=== PATIENT | female | born 1960 | race Caucasian/White ===

== ENCOUNTER 2020-04-12 15:29 | Inpatient (IN) | payer SELFPAY ==
[2020-04-12 15:45] VITALS: BMI 30.7
[2020-04-12] MEDS ORDERED: SODIUM CHLORIDE 0.9% 500 ML INFUS.BAG IV ONE (16:12)
[2020-04-12] MEDS ORDERED: DEXAMETHASONE SOD PHOSPHATE 4 MG/1 ML VIAL IVPUSH ONE (16:22)
[2020-04-12 16:54] LABS: VENOUS BASE EXCESS 1.1 mmol/L (-2-2); VENOUS O2 SATURATION 67.8 % (70-80); VENOUS PCO2 50.3 mmHg (38-52); VENOUS PH 7.357 (7.310-7.410)
[2020-04-12] MEDS ORDERED: DEXAMETHASONE SOD PHOSPHATE 4 MG/1 ML VIAL ONE (16:58)
[2020-04-12 17:01] LABS: BASO % 0.2 % (0-2.0); HEMOGLOBIN 14.2 GM/dL (10.7-15.3); LYMPH % 19.2 % (8-40); MCH 30.6 pg (25.7-33.7); MCHC 33.8 g/dl (32.0-36.0); MEAN CELL VOLUME 90.5 fl (80-96); MEAN PLT VOLUME 9.5 fl (7.5-11.1); MONO % 7.7 % (3.8-10.2); NEUT % 72.9 % (42.8-82.8); PLATELET COUNT 118 K/MM3 (134-434); RBC 4.64 M/mm3 (3.60-5.2); RDW 12.6 % (11.6-15.6); WHITE BLOOD COUNT 5.9 K/mm3 (4.0-10.0)
[2020-04-12 17:06] LABS: CHLORIDE 101 mmol/L (98-107); POTASSIUM 3.9 mmol/L (3.5-5.1); SODIUM 134 mmol/L (136-145)
[2020-04-12 17:08] LABS: CALCIUM 8.5 mg/dL (8.5-10.1); INR 0.96 (0.83-1.09); PROTHROMBIN TIME (PATIENT) 11.6 SEC (9.7-13.0)
[2020-04-12 17:09] LABS: ALBUMIN 3.6 g/dl (3.4-5.0); ANION GAP 6 MMOL/L (8-16); BLOOD UREA NITROGEN 11.4 mg/dL (7-18); CO2 28 mmol/L (21-32); GLUCOSE,RANDOM 159 mg/dL (74-106)
[2020-04-12 17:11] LABS: ACTIVATED PTT 28.8 SECONDS (25.2-36.5); BILIRUBIN,DIRECT 0.2 mg/dL (0.0-0.2)
[2020-04-12 17:12] LABS: CREATININE 0.7 mg/dL (0.55-1.3); SGOT/AST 42 U/L (15-37); SGPT/ALT 42 U/L (13-61)
[2020-04-12 17:13] LABS: BILIRUBIN,TOTAL 0.4 mg/dL (0.2-1); TOT PROT 7.4 g/dl (6.4-8.2)
[2020-04-12 17:15] LABS: ALK PHOS 65 U/L (45-117)
[2020-04-12 17:16] LABS: LDH 245 U/L (84-246)
[2020-04-12 19:56] LABS: PH,URINE 5.5 (5.0-8.0); URINE APPEARANCE CLEAR; URINE BILIRUBIN NEGATIVE (NEGATIVE); URINE COLOR YELLOW; URINE GLUCOSE (UA) 2+ (NEGATIVE); URINE KETONE 1+ (NEGATIVE); URINE LEUK ESTERASE NEGATIVE (NEGATIVE); URINE NITRITE NEGATIVE (NEGATIVE); URINE PROTEIN NEGATIVE (NEGATIVE); URINE UROBILINOGEN 0.2 mg/dL (0.2-1.0)
[2020-04-12] MEDS ORDERED: SODIUM CHLORIDE 500 ML IV STA (20:19)
[2020-04-12] MEDS: INSULIN SLIDING SCALE (NOVOLOG) 1 VIAL SQ SCH (22:12)
[2020-04-13] MEDS ORDERED: SODIUM CHLORIDE 1,000 ML IV SCH (02:15)
[2020-04-13 07:11] LABS: BASO % 0.2 % (0-2.0); HEMATOCRIT 41.7 % (32.4-45.2); HEMOGLOBIN 14.3 GM/dL (10.7-15.3); LYMPH % 38.8 % (8-40); MCH 30.9 pg (25.7-33.7); MCHC 34.4 g/dl (32.0-36.0); MEAN CELL VOLUME 89.8 fl (80-96); MEAN PLT VOLUME 9.7 fl (7.5-11.1); PLATELET COUNT 119 K/MM3 (134-434); RBC 4.64 M/mm3 (3.60-5.2); RDW 12.6 % (11.6-15.6); WHITE BLOOD COUNT 2.3 K/mm3 (4.0-10.0)
[2020-04-13 07:27] LABS: POTASSIUM 4.2 mmol/L (3.5-5.1)
[2020-04-13 07:29] LABS: CALCIUM 8.6 mg/dL (8.5-10.1)
[2020-04-13 07:30] LABS: ALBUMIN 3.5 g/dl (3.4-5.0); BLOOD UREA NITROGEN 11.7 mg/dL (7-18); MAGNESIUM 2.3 mg/dL (1.8-2.4)
[2020-04-13 07:33] LABS: CREATININE 0.7 mg/dL (0.55-1.3); PHOSPHOROUS 3.3 mg/dL (2.5-4.9)
[2020-04-13 07:34] LABS: BILIRUBIN,TOTAL 0.4 mg/dL (0.2-1); TOT PROT 7.2 g/dl (6.4-8.2)
[2020-04-13] MEDS ORDERED: FAMOTIDINE 20 MG TABLET ONE (09:09)
[2020-04-13] MEDS ORDERED: DEXAMETHASONE SOD PHOSPHATE 10 MG/1 ML VIAL ONE (09:09)
[2020-04-13] MEDS ORDERED: ENOXAPARIN NA (PORCINE) 40 MG/0.4 ML DISP.SYRIN SQ ONE (09:09)
[2020-04-13] MEDS: INSULIN SLIDING SCALE (NOVOLOG) 1 VIAL SQ SCH ×3 (09:20→17:56)
[2020-04-13] MEDS: FAMOTIDINE 20 MG TABLET PO SCH (09:21)
[2020-04-13] MEDS ORDERED: ENOXAPARIN NA (PORCINE) 80 MG/0.8 ML DISP.SYRIN SQ ONE (09:47)
[2020-04-13] MEDS: ENOXAPARIN NA (PORCINE) 80 MG/0.8 ML DISP.SYRIN SQ SCH (09:54)
[2020-04-13] MEDS ORDERED: ENOXAPARIN NA (PORCINE) 40 MG/0.4 ML DISP.SYRIN SQ SCH (10:00)
[2020-04-13] MEDS ORDERED: DEXAMETHASONE SOD PHOSPHATE 4 MG/1 ML VIAL IVPUSH SCH (10:00)
[2020-04-13] MEDS ORDERED: BAMLANIVIMAB 700 MG in SODIUM CHLORIDE 250 ML IVPB ONE (16:50)
[2020-04-14] MEDS: ENOXAPARIN NA (PORCINE) 80 MG/0.8 ML DISP.SYRIN SQ SCH ×2 (02:00→09:42)
[2020-04-14] MEDS: INSULIN SLIDING SCALE (NOVOLOG) 1 VIAL SQ SCH ×4 (06:37→17:08)
[2020-04-14] MEDS ORDERED: guaiFENesin/D-M SUGAR-FREE/ACLHOL-FREE 118 ML BOTTLE PO PRN (09:30)
[2020-04-14] MEDS: FAMOTIDINE 20 MG TABLET PO SCH (09:42)
[2020-04-14 09:45] LABS: POTASSIUM 3.9 mmol/L (3.5-5.1)
[2020-04-14] MEDS: ACETAMINOPHEN 325 MG TABLET (FP) PO PRN ×2 (09:47→17:08)
[2020-04-14 09:57] LABS: HEMATOCRIT 39.5 % (32.4-45.2); HEMOGLOBIN 13.3 GM/dL (10.7-15.3); MCH 30.4 pg (25.7-33.7); MCHC 33.6 g/dl (32.0-36.0); MEAN CELL VOLUME 90.3 fl (80-96); MEAN PLT VOLUME 9.7 fl (7.5-11.1); PLATELET COUNT 125 K/MM3 (134-434); RBC 4.37 M/mm3 (3.60-5.2); RDW 12.7 % (11.6-15.6); WHITE BLOOD COUNT 8.2 K/mm3 (4.0-10.0)
[2020-04-14 10:06] LABS: ALBUMIN 3.4 g/dl (3.4-5.0)
[2020-04-14 10:09] LABS: CALCIUM 8.7 mg/dL (8.5-10.1); CREATININE 0.6 mg/dL (0.55-1.3)
[2020-04-14 10:11] LABS: TOT PROT 6.9 g/dl (6.4-8.2)
[2020-04-14 17:04] VITALS: BP 117/76; PULSE 89
[2020-04-14 18:54] VITALS: TEMP 96.2
[2020-04-15] MEDS ORDERED: ENOXAPARIN NA (PORCINE) 40 MG/0.4 ML DISP.SYRIN SQ SCH (10:00)
== END 2020-04-14 20:00 | disposition home or self-care (01) | DRG 137 ==
LOC: JER 15:29 → SUPCPDRO 15:29 → JERBED 17:15 → J6WEST-2 04-14
PROVIDERS: ADMIT Internal Medicine; ATTEND Internal Medicine
PROC: XW033F6 Introduction of Bamlanivimab Monoclonal Antibody into Peripheral Vein, Percutaneous Approach, New Technology Group 6 (ICD-10-PCS; principal; 2020-04-13)
DX: U07.1 COVID-19 (principal); A08.39 Other viral enteritis; I10 Essential (primary) hypertension; E11.9 Type 2 diabetes mellitus without complications; E86.0 Dehydration; M06.9 Rheumatoid arthritis, unspecified; R09.02 Hypoxemia; R55 Syncope and collapse
CPT/HCPCS: 36415; 71045-TC-FY; 80053; 81003; 82248; 82550; 82728; 82803; 82962; 83036; 83605; 83615; 83735; 84100; 84484; 85025; 85027; 85379; 85610; 85651; 85730; 86140; 86769; 87040; 87086; 87804; 93005; 93010; 99285-25; C9803; M0239; Q0239; U0003

== ENCOUNTER 2020-04-18 10:53 | Inpatient (IN) | payer OTHER ==
[2020-04-18] MEDS ORDERED: DEXAMETHASONE SOD PHOSPHATE 10 MG/1 ML VIAL IVPUSH ONE (12:07)
[2020-04-18] MEDS ORDERED: DEXAMETHASONE SOD PHOSPHATE 10 MG/1 ML VIAL ONE (12:13)
[2020-04-18 12:19] LABS: BASO % 0.3 % (0-2.0); EOS % 0.3 % (0-4.5); HEMATOCRIT 41.5 % (32.4-45.2); HEMOGLOBIN 14.4 GM/dL (10.7-15.3); LYMPH % 12.2 % (8-40); MCH 30.8 pg (25.7-33.7); MCHC 34.6 g/dl (32.0-36.0); MEAN CELL VOLUME 89.1 fl (80-96); MEAN PLT VOLUME 9.4 fl (7.5-11.1); MONO % 7.7 % (3.8-10.2); NEUT % 79.5 % (42.8-82.8); PLATELET COUNT 239 K/MM3 (134-434); RBC 4.66 M/mm3 (3.60-5.2); RDW 12.6 % (11.6-15.6); WHITE BLOOD COUNT 8.1 K/mm3 (4.0-10.0)
[2020-04-18 12:42] LABS: CHLORIDE 99 mmol/L (98-107); POTASSIUM 3.6 mmol/L (3.5-5.1); SODIUM 134 mmol/L (136-145)
[2020-04-18] MEDS ORDERED: LACTATED RINGERS SOLUTION 1000 ML INFUS.BAG IV ONE (12:44)
[2020-04-18 12:45] LABS: ALBUMIN 2.9 g/dl (3.4-5.0); ANION GAP 7 MMOL/L (8-16); BLOOD UREA NITROGEN 7.6 mg/dL (7-18); CALCIUM 8.5 mg/dL (8.5-10.1); CO2 27 mmol/L (21-32)
[2020-04-18 12:46] LABS: GLUCOSE,RANDOM 161 mg/dL (74-106)
[2020-04-18 12:48] LABS: BILIRUBIN,DIRECT 0.2 mg/dL (0.0-0.2); CREATININE 0.5 mg/dL (0.55-1.3); SGOT/AST 47 U/L (15-37); SGPT/ALT 39 U/L (13-61)
[2020-04-18 12:50] LABS: BILIRUBIN,TOTAL 0.5 mg/dL (0.2-1); TOT PROT 7.3 g/dl (6.4-8.2)
[2020-04-18 12:51] LABS: ALK PHOS 78 U/L (45-117); LDH 465 U/L (84-246)
[2020-04-18 13:23] LABS: INR 1.05 (0.83-1.09); PROTHROMBIN TIME (PATIENT) 12.7 SEC (9.7-13.0)
[2020-04-18 13:26] LABS: ACTIVATED PTT 30.9 SECONDS (25.2-36.5)
[2020-04-18 14:08] LABS: VENOUS BASE EXCESS 1.9 mmol/L (-2-2); VENOUS O2 SATURATION 85.2 % (70-80); VENOUS PCO2 39.9 mmHg (38-52); VENOUS PH 7.435 (7.310-7.410)
[2020-04-18] MEDS ORDERED: ACETAMINOPHEN 1000 MG/100 ML VIAL (NON FORMULARY) IVPB ONE (16:55)
[2020-04-18] MEDS ORDERED: ACETAMINOPHEN INJECTION 100 ML IVPB ONE (17:23)
[2020-04-18] MEDS ORDERED: ACETAMINOPHEN 325 MG TABLET (FP) PO PRN (17:34)
[2020-04-18] MEDS ORDERED: ENOXAPARIN NA (PORCINE) 40 MG/0.4 ML DISP.SYRIN SQ ONE (18:15)
[2020-04-18] MEDS: SODIUM CHLORIDE 0.45% 1,000 ML IV SCH (18:29)
[2020-04-18] MEDS: ENOXAPARIN NA (PORCINE) 40 MG/0.4 ML DISP.SYRIN SQ SCH (18:30)
[2020-04-18] MEDS ORDERED: ASCORBIC ACID 500 MG TABLET (FP) ONE (22:18)
[2020-04-18] MEDS: ASCORBIC ACID 500 MG TABLET (FP) PO SCH (22:25)
[2020-04-18] MEDS ORDERED: INSULIN SLIDING SCALE (NOVOLOG) 1 VIAL SQ ONE ×2 (22:28→23:01)
[2020-04-18] MEDS: INSULIN SLIDING SCALE (NOVOLOG) 1 VIAL SQ SCH (23:05)
[2020-04-19] MEDS: SODIUM CHLORIDE 0.45% 1,000 ML IV SCH (06:46)
[2020-04-19] MEDS: INSULIN SLIDING SCALE (NOVOLOG) 1 VIAL SQ SCH ×4 (06:47→22:33)
[2020-04-19 09:56] LABS: HEMATOCRIT 40.6 % (32.4-45.2); HEMOGLOBIN 14.1 GM/dL (10.7-15.3); MCH 30.7 pg (25.7-33.7); MCHC 34.9 g/dl (32.0-36.0); MEAN CELL VOLUME 88.2 fl (80-96); MEAN PLT VOLUME 8.6 fl (7.5-11.1); PLATELET COUNT 260 K/MM3 (134-434); RDW 12.7 % (11.6-15.6); WHITE BLOOD COUNT 5.2 K/mm3 (4.0-10.0)
[2020-04-19] MEDS ORDERED: DEXAMETHASONE SOD PHOSPHATE 10 MG/1 ML VIAL IVPUSH SCH (10:00)
[2020-04-19] MEDS ORDERED: ZINC SULFATE 220 MG TABLET PO SCH (10:00)
[2020-04-19 10:22] LABS: POTASSIUM 3.4 mmol/L (3.5-5.1)
[2020-04-19 10:26] LABS: BLOOD UREA NITROGEN 11.8 mg/dL (7-18)
[2020-04-19 10:27] LABS: CALCIUM 8.8 mg/dL (8.5-10.1); MAGNESIUM 2.3 mg/dL (1.8-2.4)
[2020-04-19 10:29] LABS: CREATININE 0.6 mg/dL (0.55-1.3); PHOSPHOROUS 2.8 mg/dL (2.5-4.9)
[2020-04-19] MEDS: CHOLECALCIFEROL (VIT D3) 1,000 UNIT (25 MCG) TABLET PO SCH (11:32)
[2020-04-19] MEDS: PANTOPRAZOLE 40 MG TABLET PO SCH (11:32)
[2020-04-19] MEDS: ENOXAPARIN NA (PORCINE) 40 MG/0.4 ML DISP.SYRIN SQ SCH (11:32)
[2020-04-19] MEDS: ASCORBIC ACID 500 MG TABLET (FP) PO SCH ×2 (11:32→21:37)
[2020-04-19] MEDS ORDERED: DEXAMETHASONE SOD PHOSPHATE 4 MG/1 ML VIAL IVPUSH STA (12:18)
[2020-04-19] MEDS ORDERED: REMDESIVIR 200 MG in SODIUM CHLORIDE 210 ML IVPB ONE (13:00)
[2020-04-19] MEDS ORDERED: CEFTRIAXONE 1,000 GM in DEXTROSE 5%-WATER - 50 ML IVPB SCH (14:30)
[2020-04-19] MEDS ORDERED: DEXTROSE 5%-WATER - 50 ML IVPB ONE (18:22)
[2020-04-19] MEDS ORDERED: cefTRIAXone SODIUM 1 GM VIAL ONE (18:22)
[2020-04-19] MEDS: AZITHROMYCIN 500 MG TABLET PO SCH (19:12)
[2020-04-20] MEDS: INSULIN SLIDING SCALE (NOVOLOG) 1 VIAL SQ SCH ×4 (07:13→21:19)
[2020-04-20] MEDS ORDERED: DEXTROSE 5%-WATER - 50 ML IVPB ONE (10:56)
[2020-04-20] MEDS ORDERED: PT OWN MED DRAWER 7, Y5N ONE (10:56)
[2020-04-20] MEDS ORDERED: cefTRIAXone SODIUM 1 GM VIAL ONE (10:56)
[2020-04-20] MEDS: ENOXAPARIN NA (PORCINE) 40 MG/0.4 ML DISP.SYRIN SQ SCH (11:27)
[2020-04-20] MEDS: AZITHROMYCIN 500 MG TABLET PO SCH (11:28)
[2020-04-20] MEDS: PANTOPRAZOLE 40 MG TABLET PO SCH (11:28)
[2020-04-20] MEDS: DEXAMETHASONE SOD PHOSPHATE 4 MG/1 ML VIAL IVPUSH SCH (11:28)
[2020-04-20] MEDS: CHOLECALCIFEROL (VIT D3) 1,000 UNIT (25 MCG) TABLET PO SCH (11:29)
[2020-04-20] MEDS: ASCORBIC ACID 500 MG TABLET (FP) PO SCH ×2 (11:29→21:18)
[2020-04-20] MEDS: CEFTRIAXONE 1 GM in DEXTROSE 5%-WATER - 50 ML IVPB SCH (11:29)
[2020-04-20] MEDS: REMDESIVIR 100 MG in SODIUM CHLORIDE 230 ML IVPB SCH (12:20)
[2020-04-20] MEDS ORDERED: ZINC SULFATE 220 MG TABLET PO SCH (12:30)
[2020-04-20] MEDS: POLYETHYLENE GLYCOL 3350 119 GM BTL PO PRN (17:42)
[2020-04-20] MEDS: DOCUSATE SODIUM 100 MG CAPSULE (FP) PO SCH (21:19)
[2020-04-21] MEDS: DOCUSATE SODIUM 100 MG CAPSULE (FP) PO SCH ×3 (06:24→21:18)
[2020-04-21] MEDS: INSULIN SLIDING SCALE (NOVOLOG) 1 VIAL SQ SCH ×4 (06:25→21:19)
[2020-04-21 08:46] LABS: BASO % 0.1 % (0-2.0); EOS % 0.1 % (0-4.5); HEMATOCRIT 39.7 % (32.4-45.2); HEMOGLOBIN 13.7 GM/dL (10.7-15.3); LYMPH % 14.9 % (8-40); MCH 30.5 pg (25.7-33.7); MCHC 34.4 g/dl (32.0-36.0); MEAN CELL VOLUME 88.7 fl (80-96); MEAN PLT VOLUME 8.7 fl (7.5-11.1); MONO % 7.3 % (3.8-10.2); NEUT % 77.6 % (42.8-82.8); PLATELET COUNT 322 K/MM3 (134-434); RBC 4.47 M/mm3 (3.60-5.2); RDW 12.4 % (11.6-15.6); WHITE BLOOD COUNT 11.3 K/mm3 (4.0-10.0)
[2020-04-21 09:14] LABS: POTASSIUM 3.8 mmol/L (3.5-5.1)
[2020-04-21 09:18] LABS: CALCIUM 9.2 mg/dL (8.5-10.1)
[2020-04-21 09:19] LABS: ALBUMIN 3.1 g/dl (3.4-5.0); BLOOD UREA NITROGEN 18.4 mg/dL (7-18); MAGNESIUM 2.4 mg/dL (1.8-2.4)
[2020-04-21 09:22] LABS: CREATININE 0.7 mg/dL (0.55-1.3); PHOSPHOROUS 3.5 mg/dL (2.5-4.9)
[2020-04-21 09:23] LABS: BILIRUBIN,TOTAL 0.8 mg/dL (0.2-1)
[2020-04-21 09:24] LABS: TOT PROT 7.2 g/dl (6.4-8.2)
[2020-04-21] MEDS ORDERED: DEXTROSE 5%-WATER - 50 ML IVPB ONE (10:05)
[2020-04-21] MEDS ORDERED: cefTRIAXone SODIUM 1 GM VIAL ONE (10:05)
[2020-04-21] MEDS ORDERED: PT OWN MED DRAWER 7, Y5N ONE (10:05)
[2020-04-21] MEDS: ENOXAPARIN NA (PORCINE) 40 MG/0.4 ML DISP.SYRIN SQ SCH (10:08)
[2020-04-21] MEDS: AZITHROMYCIN 500 MG TABLET PO SCH (10:09)
[2020-04-21] MEDS: CHOLECALCIFEROL (VIT D3) 1,000 UNIT (25 MCG) TABLET PO SCH (10:09)
[2020-04-21] MEDS: DEXAMETHASONE SOD PHOSPHATE 4 MG/1 ML VIAL IVPUSH SCH (10:09)
[2020-04-21] MEDS: ZINC SULFATE 220 MG CAPSULE (FP) PO SCH (10:09)
[2020-04-21] MEDS: CEFTRIAXONE 1 GM in DEXTROSE 5%-WATER - 50 ML IVPB SCH (10:09)
[2020-04-21] MEDS: ASCORBIC ACID 500 MG TABLET (FP) PO SCH ×2 (10:09→21:18)
[2020-04-21] MEDS: PANTOPRAZOLE 40 MG TABLET PO SCH (10:09)
[2020-04-21] MEDS: POLYETHYLENE GLYCOL 3350 119 GM BTL PO PRN (10:10)
[2020-04-21] MEDS ORDERED: INSULIN (NOVOLOG) ASPART 100 UNITS/ML 10ML VIAL ONE ×2 (11:08→20:54)
[2020-04-21] MEDS: REMDESIVIR 100 MG in SODIUM CHLORIDE 230 ML IVPB SCH (14:12)
[2020-04-22] MEDS: INSULIN SLIDING SCALE (NOVOLOG) 1 VIAL SQ SCH ×4 (06:30→21:34)
[2020-04-22] MEDS: DOCUSATE SODIUM 100 MG CAPSULE (FP) PO SCH ×3 (06:30→21:33)
[2020-04-22] MEDS ORDERED: DEXTROSE 5%-WATER - 50 ML IVPB ONE ×2 (11:54→13:04)
[2020-04-22] MEDS ORDERED: cefTRIAXone SODIUM 1 GM VIAL ONE ×2 (11:54→13:03)
[2020-04-22] MEDS ORDERED: PT OWN MED DRAWER 7, Y5N ONE (11:54)
[2020-04-22] MEDS: AZITHROMYCIN 500 MG TABLET PO SCH (12:58)
[2020-04-22] MEDS: CHOLECALCIFEROL (VIT D3) 1,000 UNIT (25 MCG) TABLET PO SCH (12:59)
[2020-04-22] MEDS: PANTOPRAZOLE 40 MG TABLET PO SCH (13:02)
[2020-04-22] MEDS: ENOXAPARIN NA (PORCINE) 40 MG/0.4 ML DISP.SYRIN SQ SCH (13:02)
[2020-04-22] MEDS: DEXAMETHASONE SOD PHOSPHATE 4 MG/1 ML VIAL IVPUSH SCH (13:02)
[2020-04-22] MEDS: ZINC SULFATE 220 MG CAPSULE (FP) PO SCH (13:02)
[2020-04-22] MEDS: CEFTRIAXONE 1 GM in DEXTROSE 5%-WATER - 50 ML IVPB SCH (13:05)
[2020-04-22] MEDS: ASCORBIC ACID 500 MG TABLET (FP) PO SCH ×2 (15:11→21:33)
[2020-04-22] MEDS: metFORMIN HCL 500 MG TABLET (FP) PO SCH (19:25)
[2020-04-22] MEDS: REMDESIVIR 100 MG in SODIUM CHLORIDE 230 ML IVPB SCH (19:25)
[2020-04-23] MEDS: metFORMIN HCL 500 MG TABLET (FP) PO SCH ×2 (06:01→16:21)
[2020-04-23] MEDS: DOCUSATE SODIUM 100 MG CAPSULE (FP) PO SCH ×4 (06:01→22:00)
[2020-04-23] MEDS: INSULIN SLIDING SCALE (NOVOLOG) 1 VIAL SQ SCH ×4 (06:01→21:57)
[2020-04-23 09:27] LABS: HEMATOCRIT 36.2 % (32.4-45.2); HEMOGLOBIN 12.6 GM/dL (10.7-15.3); MCH 30.4 pg (25.7-33.7); MCHC 34.8 g/dl (32.0-36.0); MEAN CELL VOLUME 87.2 fl (80-96); MEAN PLT VOLUME 8.6 fl (7.5-11.1); PLATELET COUNT 282 K/MM3 (134-434); RBC 4.15 M/mm3 (3.60-5.2); RDW 12.4 % (11.6-15.6); WHITE BLOOD COUNT 9.9 K/mm3 (4.0-10.0)
[2020-04-23 09:42] LABS: POTASSIUM 3.8 mmol/L (3.5-5.1)
[2020-04-23] MEDS ORDERED: cefTRIAXone SODIUM 1 GM VIAL ONE (09:46)
[2020-04-23] MEDS ORDERED: DEXTROSE 5%-WATER - 50 ML IVPB ONE (09:46)
[2020-04-23] MEDS: PANTOPRAZOLE 40 MG TABLET PO SCH (09:50)
[2020-04-23] MEDS: ASCORBIC ACID 500 MG TABLET (FP) PO SCH ×2 (09:50→21:56)
[2020-04-23] MEDS: ZINC SULFATE 220 MG CAPSULE (FP) PO SCH (09:50)
[2020-04-23] MEDS: DEXAMETHASONE SOD PHOSPHATE 4 MG/1 ML VIAL IVPUSH SCH (09:50)
[2020-04-23] MEDS: CHOLECALCIFEROL (VIT D3) 1,000 UNIT (25 MCG) TABLET PO SCH (09:50)
[2020-04-23] MEDS: ENOXAPARIN NA (PORCINE) 40 MG/0.4 ML DISP.SYRIN SQ SCH (10:01)
[2020-04-23 10:06] LABS: ALBUMIN 2.7 g/dl (3.4-5.0); CREATININE 0.5 mg/dL (0.55-1.3)
[2020-04-23 10:07] LABS: TOT PROT 6.3 g/dl (6.4-8.2)
[2020-04-23 10:09] LABS: CALCIUM 8.6 mg/dL (8.5-10.1)
[2020-04-23 10:10] LABS: BLOOD UREA NITROGEN 18.3 mg/dL (7-18)
[2020-04-23 10:36] LABS: BILIRUBIN,TOTAL 0.4 mg/dL (0.2-1)
[2020-04-23] MEDS: CEFTRIAXONE 1 GM in DEXTROSE 5%-WATER - 50 ML IVPB SCH (13:46)
[2020-04-23] MEDS: REMDESIVIR 100 MG in SODIUM CHLORIDE 230 ML IVPB SCH (14:14)
[2020-04-24] MEDS: DOCUSATE SODIUM 100 MG CAPSULE (FP) PO SCH ×3 (05:32→21:08)
[2020-04-24] MEDS: metFORMIN HCL 500 MG TABLET (FP) PO SCH ×2 (06:18→16:56)
[2020-04-24] MEDS: INSULIN SLIDING SCALE (NOVOLOG) 1 VIAL SQ SCH ×4 (06:18→21:13)
[2020-04-24] MEDS: DEXAMETHASONE SOD PHOSPHATE 4 MG/1 ML VIAL IVPUSH SCH ×2 (10:09→12:45)
[2020-04-24] MEDS: ASCORBIC ACID 500 MG TABLET (FP) PO SCH ×2 (10:09→21:08)
[2020-04-24] MEDS: CHOLECALCIFEROL (VIT D3) 1,000 UNIT (25 MCG) TABLET PO SCH (10:09)
[2020-04-24] MEDS: ZINC SULFATE 220 MG CAPSULE (FP) PO SCH (10:09)
[2020-04-24] MEDS: PANTOPRAZOLE 40 MG TABLET PO SCH ×2 (10:09→12:45)
[2020-04-24] MEDS: ENOXAPARIN NA (PORCINE) 40 MG/0.4 ML DISP.SYRIN SQ SCH (10:10)
[2020-04-24] MEDS: POLYETHYLENE GLYCOL 3350 119 GM BTL PO PRN (10:10)
[2020-04-25] MEDS: DOCUSATE SODIUM 100 MG CAPSULE (FP) PO SCH ×3 (06:06→21:41)
[2020-04-25] MEDS: metFORMIN HCL 500 MG TABLET (FP) PO SCH ×2 (06:06→18:03)
[2020-04-25] MEDS: INSULIN SLIDING SCALE (NOVOLOG) 1 VIAL SQ SCH ×4 (06:33→21:40)
[2020-04-25] MEDS: ENOXAPARIN NA (PORCINE) 40 MG/0.4 ML DISP.SYRIN SQ SCH (09:36)
[2020-04-25] MEDS: CHOLECALCIFEROL (VIT D3) 1,000 UNIT (25 MCG) TABLET PO SCH (09:36)
[2020-04-25] MEDS: ZINC SULFATE 220 MG CAPSULE (FP) PO SCH (09:37)
[2020-04-25] MEDS: ASCORBIC ACID 500 MG TABLET (FP) PO SCH ×2 (09:37→21:31)
[2020-04-25] MEDS: DEXAMETHASONE SOD PHOSPHATE 4 MG/1 ML VIAL IVPUSH SCH ×2 (09:37→09:48)
[2020-04-25] MEDS: PANTOPRAZOLE 40 MG TABLET PO SCH (09:37)
[2020-04-25 19:34] VITALS: BMI 29.7
[2020-04-26] MEDS: DOCUSATE SODIUM 100 MG CAPSULE (FP) PO SCH ×3 (05:06→21:19)
[2020-04-26] MEDS: metFORMIN HCL 500 MG TABLET (FP) PO SCH ×2 (06:34→16:44)
[2020-04-26] MEDS: INSULIN SLIDING SCALE (NOVOLOG) 1 VIAL SQ SCH ×4 (06:48→21:18)
[2020-04-26] MEDS: PANTOPRAZOLE 40 MG TABLET PO SCH (11:01)
[2020-04-26] MEDS: DEXAMETHASONE SOD PHOSPHATE 4 MG/1 ML VIAL IVPUSH SCH (11:01)
[2020-04-26] MEDS: ASCORBIC ACID 500 MG TABLET (FP) PO SCH ×2 (11:01→21:18)
[2020-04-26] MEDS: CHOLECALCIFEROL (VIT D3) 1,000 UNIT (25 MCG) TABLET PO SCH (11:02)
[2020-04-26] MEDS: ZINC SULFATE 220 MG CAPSULE (FP) PO SCH (11:02)
[2020-04-26] MEDS ORDERED: PT OWN MED DRAWER 7, Y5N ONE (15:04)
[2020-04-26] MEDS ORDERED: INSULIN (NOVOLOG) ASPART 100 UNITS/ML 10ML VIAL ONE (20:57)
[2020-04-27] MEDS: DOCUSATE SODIUM 100 MG CAPSULE (FP) PO SCH (05:34)
[2020-04-27] MEDS: metFORMIN HCL 500 MG TABLET (FP) PO SCH (06:22)
[2020-04-27] MEDS: INSULIN SLIDING SCALE (NOVOLOG) 1 VIAL SQ SCH (06:23)
[2020-04-27] MEDS ORDERED: INSULIN (NOVOLOG) ASPART 100 UNITS/ML 10ML VIAL ONE ×2 (06:33→11:23)
[2020-04-27] MEDS: DEXAMETHASONE SOD PHOSPHATE 4 MG/1 ML VIAL IVPUSH SCH (09:05)
[2020-04-27] MEDS: ZINC SULFATE 220 MG CAPSULE (FP) PO SCH (09:05)
[2020-04-27] MEDS: ASCORBIC ACID 500 MG TABLET (FP) PO SCH (09:05)
[2020-04-27] MEDS: PANTOPRAZOLE 40 MG TABLET PO SCH (09:05)
[2020-04-27] MEDS: CHOLECALCIFEROL (VIT D3) 1,000 UNIT (25 MCG) TABLET PO SCH (09:06)
[2020-04-27 09:35] VITALS: BP 133/78; PULSE 94; TEMP 98.6
== END 2020-04-27 11:35 | disposition home or self-care (01) | DRG 177 ==
LOC: JER 10:53 → SUPCPDRO 10:53 → JERBED 16:33 → J6S 04-19 03:41 → J5S 04-22 15:58
PROVIDERS: ADMIT Internal Medicine; ATTEND Internal Medicine
PROC: XW033E5 Introduction of Remdesivir Anti-infective into Peripheral Vein, Percutaneous Approach, New Technology Group 5 (ICD-10-PCS; principal; 2020-04-19)
DX: U07.1 COVID-19 (principal); J12.82 Pneumonia due to coronavirus disease 2019; I31.3 Pericardial effusion (noninflammatory); R51.9 Headache, unspecified; I10 Essential (primary) hypertension; E11.9 Type 2 diabetes mellitus without complications; S09.90XA Unspecified injury of head, initial encounter; W18.30XA Fall on same level, unspecified, initial encounter; Y92.091 Bathroom in other non-institutional residence as the place of occurrence of the external cause; R09.02 Hypoxemia
CPT/HCPCS: 36415; 70450-TC; 71045-TC-FY; 71275-TC; 80048; 80053; 82248; 82550; 82728; 82803; 82962; 83605; 83615; 83735; 84100; 84484; 85025; 85027; 85379; 85610; 85730; 86140; 87040; 93005; 93010; 94010; 94761; 99285-25; C9399; C9803; J0131; J1100; Q9967; U0003